=== PATIENT | female | born 1935 | race Caucasian/White ===

== ENCOUNTER → 2017-12-17 14:51 | Outpatient (CLI) | payer MEDICARE, SELFPAY ==
[2017-12-17 17:48] LABS: M R Staph aureus DNA By PCR Negative (Negative); Probe Check PASS; Staph aureus DNA By PCR NEGATIVE (Negative)
== END ==
PROVIDERS: Family Provider Family Medicine; PCP Family Medicine; Visit Provider Specialist
DX: S80.11XD Contusion of right lower leg, subsequent encounter (principal)
CPT/HCPCS: 87070; 87075; 87077; 87186; 87205; 87640

== ENCOUNTER 2017-12-21 12:55 | Outpatient (RCR) | payer MEDICARE, SELFPAY ==
[2017-12-21 13:44] VITALS: BP 137/103; PULSE 90; RESP 16; TEMP 36.4; BMI 24.9
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
== END 2017-12-27 23:59 ==
LOC: WC 12:55
PROVIDERS: Family Provider Family Medicine; PCP Family Medicine; Visit Provider Surgery
DX: T81.4XXA Infection following a procedure, initial encounter (principal); L08.9 Local infection of the skin and subcutaneous tissue, unspecified; S80.11XS Contusion of right lower leg, sequela; V89.2XXS Person injured in unspecified motor-vehicle accident, traffic, sequela; I48.91 Unspecified atrial fibrillation; Z86.711 Personal history of pulmonary embolism; I10 Essential (primary) hypertension; Z79.01 Long term (current) use of anticoagulants; Z85.828 Personal history of other malignant neoplasm of skin
CPT/HCPCS: 11042; 99212; G0463

== ENCOUNTER 2017-12-28 09:08 | Outpatient (RCR) | payer MEDICARE, SELFPAY ==
[2017-12-28 01:49] VITALS: BP 137/103; PULSE 90; RESP 16; TEMP 36.4
[2017-12-28 14:30] VITALS: BP 120/82; PULSE 90; RESP 18; TEMP 35.9
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
--- NOTE | 2018-01-01 10:32 | WC ---
Patient called in to cancel her F/U appointment for Thursday with Dr. Sauer. She states wound is healed, not drainage. Will be discharged from the Wound Center.
--- NOTE | 2018-01-03 12:12 | LEAS_ITS ---
Arterial Study - Arterial Study Arterial Study: This is an 82-year-old female with suspected peripheral arterial occlusive disease. She also has a wound on her lower extremity. She is brought to the noninvasive vascular laboratory at this time for the purpose of bilateral noninvasive lower extremity arterial assessment. Doppler signal assessment was used to evaluate the pulses at ankle level bilaterally. On the right,, the posterior tibial pulse was triphasic. The right dorsalis pedis pulse was biphasic. The left posterior tibial and dorsalis pedis pulses were triphasic. Segmental limb pressures were obtained bilaterally. The right ankle pressure, as determined by posterior tibial pulse, was measured at 120 mmHg. The right ankle pressure, as determined by dorsalis pedis pulse, was measured at 129 mmHg. The right digital pressure was measured at 94 mmHg. The left ankle pressure, as determined by posterior tibial pulse, was measured at 124 mmHg. The left ankle pressure, as determined by dorsalis pedis pulse, was measured at 134 mmHg. The left digital pressure was measured at 59 mmHg. Pulse?volume recordings were obtained bilaterally and segmentally. Waveform amplitudes appeared to be satisfactory at all levels bilaterally, including low thigh, calf, ankle, and digital levels. Resting ankle?brachial indices were calculated bilaterally. The resting right ankle?brachial index was calculated to be 1.13. The resting left ankle?brachial index was calculated to be 1.18. Digital?brachial indices were calculated bilaterally. The right digital- brachial index was calculated to be 0.82. The left digital-brachial index was calculated to be 0.52. Impression: Based upon the findings of this resting noninvasive lower extremity arterial study, arterial perfusion to ankle level appears to be bilaterally normal. Triphasic and biphasic waveforms were noted at ankle level on the right. Triphasic waveforms were noted at ankle level on the left. Resting ankle?brachial indices are bilaterally normal, suggesting normal arterial flow at ankle level bilaterally. The right digital-brachial index is normal, suggesting normal flow at digital level in the right lower extremity. The left digital-brachial index is moderately diminished, suggesting the presence of moderate, distal, small?vessel arterial occlusive disease in the left lower extremity. Clinical correlation is advised.
== END 2018-01-27 23:59 ==
LOC: WC 09:08
PROVIDERS: Family Provider Family Medicine; PCP Family Medicine; Referring Provider Surgery; Visit Provider Surgery
DX: S80.11XA Contusion of right lower leg, initial encounter (principal); V49.9XXA Car occupant (driver) (passenger) injured in unspecified traffic accident, initial encounter; I10 Essential (primary) hypertension; Z79.01 Long term (current) use of anticoagulants; I48.2 Chronic atrial fibrillation; Z85.828 Personal history of other malignant neoplasm of skin; I27.82 Chronic pulmonary embolism; I73.9 Peripheral vascular disease, unspecified
CPT/HCPCS: 11042; 93923

== ENCOUNTER 2019-04-09 22:51 | Inpatient (IN) | payer MEDICARE, SELFPAY ==
[2019-04-09 22:53] VITALS: BP 79/57; PULSE 70; RESP 19; TEMP 36.7; O2SAT 96; BMI 25.6
--- NOTE | 2019-04-09 23:05 | EKG12_ITS ---
Test Reason : REPEAT Blood Pressure : / mmHG Vent. Rate : 072 BPM Atrial Rate : 278 BPM P-R Int : 000 ms QRS Dur : 096 ms QT Int : 394 ms P-R-T Axes : 000 057 128 degrees QTc Int : 431 ms Atrial flutter with variable A-V block Incomplete right bundle branch block ST elevation consider inferior injury or acute infarct ACUTE TX / STEMI Consider right ventricular involvement in acute inferior infarct Abnormal ECG Confirmed by GAVINO HESS, JARAD ([id number]), department editor ROBY DUNN ([id number]) on 04/11/2019 10:07:29 AM Referred By: Yahir Darby Confirmed By:JARAD MANCIA MD
--- NOTE | 2019-04-09 23:06 | RAD_ITS ---
HISTORY: CHEST PAIN THAT RADIATES TO BACK EXAMINATION/TECHNIQUE: XR Chest 1 View: Portable COMPARISON: None FINDINGS: Cardiac telemetry leads in place. Mild cardiomegaly. No vascular congestion, pleural effusion, or pulmonary infiltration. Atherosclerotic, ectatic thoracic aorta. No pneumothorax. RAD/Chest 1 View (Portable) IMPRESSION: 1. No acute cardiopulmonary disease. 2. Mild cardiomegaly. 3. Atherosclerotic, ectatic thoracic aorta. at 0030 Reported and signed by: Daljit Gonzalez MD Electronically Signed: Daljit Gonzalez, at 0:29 EST Tel , Service support ,
[2019-04-09] MEDS: 0.9% Normal Saline 1,000 ML 999 ML IV (23:08)
[2019-04-09 23:10] VITALS: BP 81/50; PULSE 60; RESP 19; O2SAT 95
--- NOTE | 2019-04-09 23:26 | EKG12_ITS ---
Test Reason : CP Blood Pressure : / mmHG Vent. Rate : 069 BPM Atrial Rate : 293 BPM P-R Int : 000 ms QRS Dur : 098 ms QT Int : 402 ms P-R-T Axes : 000 063 124 degrees QTc Int : 430 ms Atrial flutter with variable A-V block Nonspecific ST and T wave abnormality Abnormal ECG Confirmed by GAVINO HESS, JARAD ([id number]), slot editor ROBY DUNN ([id number]) on 04/11/2019 10:07:49 AM Referred By: Yahir Darby Confirmed By:JARAD MANCIA MD
[2019-04-09 23:27] VITALS: BP 84/55; PULSE 62; RESP 18; O2SAT 96
[2019-04-09 23:34] LABS: Absolute Lymphocyte Count 1.01 X10^3/uL (0.83-4.51); Absolute Neutrophil Count 3.9 X10^3/uL (2.0-7.7); Basophil# 0.03 X10^3/uL; Basophil% 0.5 % (0-1); Eosinophil# 0.11 X10^3/uL; Eosinophils% 1.9 % (0-5); Hematocrit 35.8 % (37-47); Hemoglobin 11.9 g/dL (12.0-15.0); Lymphocyte # 1.01 X10^3/ul (4.0); Lymphocyte % 17.7 % (19-41); Mean Corp Hgb Conc 33.2 g/dL (32-36); Mean Corpuscular Hgb 30.9 pg (27.0-32.0); Mean Platelet Vol. 10.3 fl (6.2-12.0); Monocyte# 0.59 X10^3/uL; Monocyte% 10.3 % (0-10); NRBC Flagged by Analyzer 0 % (0-5); Neutrophil # 3.94 X10^3/uL (2.7-7.7); Neutrophil % 69.1 % (47-70); Platelet Count 147 K/mm3 (150-450); RBC Distribution Width CV 14.6 % (11.6-14.6); RBC Distribution Width SD 49.7 fl (35.1-43.9); Red Blood Count 3.85 M/mm3 (4.2-5.4); White Blood Count 5.7 K/mm3 (4.4-11.0)
[2019-04-09 23:37] LABS: Anion Gap 5 (5-15); BUN 25 mg/dL (7-18); BUN/Creat Ratio 23.6 RATIO (10-20); Calcium,Total 8.6 mg/dL (8.5-10.1); Chloride 105 mmol/L (98-107); Creatinine, Serum 1.06 mg/dL (0.55-1.02); EST Glomerular Filtration Rate 53 mL/min (>60); Est Glom Filt Rate - Afr Amer 64 mL/min (>60); Estimated Creatinine Clearance 35.94 ml/min; Glucose 121 mg/dL (74-106); Potassium 4.7 mmol/L (3.5-5.1); Sodium Level 140 mmol/L (136-145)
[2019-04-09] MEDS: TICAGRELOR 90 MG TABLET 180 MG PO (23:38)
[2019-04-09] MEDS: Heparin Injection (Vial) 5,000 UNIT/ML VIAL 4000 UNIT IV (23:38)
--- NOTE | 2019-04-09 23:39 | ED.DCSUM_ITS ---
- ER Visit Summary Date of Service: 04/09/19 Chief Complaint: Chest pain History of Present Illness: The patient is a 83 F history of chronic A. fib a flutter, hypertension and prior PE postoperatively. Patient is chronically on Xarelto. States she has been taking it as prescribed. Tonight while she was getting into bed about an hour prior to arrival she started having midsternal chest pressure. Radiating to her back. Denies any nausea or shortness of breath. No radiation to her jaw or left arm. She states she is always in A. fib or flutter but she normally does not have pain with it. She denies any diaphoresis. No recent exertional dyspnea. She states that she had a heart catheterization about a year ago in [facility] and she thought that that was negative and she did not need any stents nor does she have any stents. Physical Examination: Elderly female complaining of chest discomfort initial blood pressure 79/57. Pulse ox 96% on room air no hypoxia. HEENT exam unremarkable. Neck nontender. Lungs clear to auscultation bilaterally. Heart atrial flutter on the monitor rate about 70 I do not appreciate any murmur. Chest wall nontender. Abdomen soft nontender. Normal bowel sounds no peritoneal signs. Patient is moving all 4 extremities. They are neurovascularly intact. She does have 1+ pitting edema both lower extremities equal symmetrical. Calves are nontender. Neurologically she is awake and alert with no focal motor deficits. Test Results: Chest x-ray portable film shows normal cardiac silhouette mediastinum and aortic knob. Her initial EKG shortly after presentation shows atrial flutter with variable AV block. There is atypical ST elevation in lead III with T wave inversion in V4 and 1. Given the initial EKG are hypotensive and age we repeated the EKG at [address] elevation in lead III and is concave. Subtle and aVF. And again T wave inversion in V4 and 5 with slight depression and also in lead I. Given that her hypotension and age I discussed the EKG with the carrier blower on-call Dr. Jhon Darby. And we are going to call a STEMI team on the patient she will be taken to cardiac catheterization lab. CBC white count of 5. Hemoglobin 11.9. Chemistries unremarkable normal crea tinine gap. Troponin normal. [facility] but that was from [facility]. And there was an obvious difference in inferolateral leads. Emergency Department Course and Treatment: 83-year-old with chest pain, hypotension and chronic A. fib flutter on Xarelto. Abnormal EKG with concerns for an inferior VA. Treated with a liter normal saline. P.o. aspirin by squad. Heparin bolus 4000 IV. Brilinta p.o. And she will be taken emergently to the cardiac catheterization lab. She was also given a 4000 unit bolus of IV heparin Treatment Plan: Hospitalist and dental patient coordinator are both aware and will be involved in the patient's care. Disposition: Directly to the cardiac catheterization labs and admission Impression: Chest Pain R/o Acute inferior VA Chronic atrial flutter Acute hypotension Anticoagulated on Xarelto This note was generated with [employer] dictation software. It may contain incorrect words, spelling, and punctuation that were not noted in review of the chart prior to signing ED Disposition - Plan for ED Patient: Disposition: Acute Care [facility]
--- NOTE | 2019-04-09 23:46 | HP.PCM_ITS ---
Problem List (1) Chest pain Status: Acute Qualifiers: Chest pain type: unspecified Qualified Code(s): R07.9 - Chest pain, unspecified (2) Pulmonary embolism Status: Chronic Qualifiers: Chronicity: chronic Acute cor pulmonale presence: unspecified (3) Atrial fibrillation Status: Chronic (4) Hypertension Status: Chronic (5) Parkinsons disease Status: Chronic History of Present Illness Date of Admission: 04/10/19 Chief Complaint: Chest pain - 1 day The patient is a 83 year old F with past medical history of Parkinson's disease, hypertension, chronic atrial fibrillation, history of PE on Xarelto who comes in with complaints of sudden onset of substernal chest pain that radiates to her back and her left jaw. Patient complained also of feeling lightheaded, no palpitation or syncope noted. EMS were called and found patient sitting in the couch. ST segment elevation were noted in lead III. In the ED on arrival, showed temperature of 98.1F, heart rate 70, blood pressure 79/57, respiratory rate 19, SPO2 was 96% on room air. WBC 6.6, hemoglobin 11.2, platelet count of 144, INR 2.7, BMP was unremarkable except for BUN of 25, creatinine 1.06. Troponin was 0.015. EKG showed some subtle ST segment elevation in lead III, aVF and T wave inversions in the lateral leads. STEMI was called. Patient had emergent cardiac catheterization. Findings showed nonobstructive coronary artery disease. Past Medical History Past Medical History (Chronic Problems): Chronic Problems (Last Updated 12/21/17 @ 14:03 by Brisa Escobedo) Traumatic wound (Chronic) Wound, surgical, nonhealing (Chronic) Pulmonary embolism (Chronic) Atrial fibrillation (Chronic) Anticoagulated (Chronic) Hypertension (Chronic) History of skin cancer (Chronic) Parkinsons disease (Chronic) Medical History: Medical History (Last Updated 12/21/17 @ 14:03 by Brisa Escobedo) Atrial fibrillation I48.91 Allergies ampicillin Allergy (Verified 12/21/17 14:01) Unknown Home Medications: Ambulatory Orders Medication Instructions Recorded Rivaroxaban [Xarelto] 20 mg PO DAILY 12/21/17 Carbidopa/Levodopa 50/200 [Sinemet 1 tab PO TID 04/09/19 CR 50/200] Metoprolol Tartrate [Lopressor 1 tab PO BID 04/09/19 (beta jeri)] Propafenone HCl 1 tab PO TID 04/09/19 Surgical History: cholecystectomy, - - The patient has previously undergone cholecystectomy. She is a Ab0. Psychiatric History: No pertinent psych hx CHEMISTRY INTERN History: No pertinent CHEMISTRY INTERN history Lives: Alone Smoking Status: Never smoker Tobacco Use: Non-smoker Alcohol: None Drugs: None - *Family History Paternal History Items: Heart Disease, - - Patient's father at age of 67 with a history of heart disease. Patient's mother at age of 88 with a history of heart disease. Maternal History Items: Heart Disease Review of Systems Constitutional: Denies: Anorexia, Chills, Fever, Night Sweats, Malaise, Weakness, Weight Change Eyes: Denies: Blurred vision, Cataracts, Conjunctivae Inflammation, Pain, Redness HEENT: Denies: Difficulty Hearing, Difficulty Swallowing, Head Aches, Hearing Changes, Sinus Congestion, Sinus Drainage Cardiovascular: Reports: Chest Pain, Chest Pressure, Chest Tightness, Light Headedness. Denies: Claudication, Orthopnea, Palpitations, Paroxysmal Noc. Dyspnea Respiratory: Denies: Cough, Hemoptysis, Shortness of breath at rest, Shortness of breath upon exertion, Sputum production Gastrointestinal: Denies: Abdominal Pain, Hematemesis, Nausea, Vomiting Genitourinary: Denies: Dysuria, Frequency Gynecological: Denies: Breast symptoms, Excessively long or heavy periods Musculoskeletal: Denies: Joint Pain, Joint stiffness, Joint swelling, Joint Tenderness Skin: Denies: Rash, Wounds Neurological: Denies: Numbness, Tingling, Focal weakness Psychiatric: Denies: Anxiety, Depression, Homicidal Ideations, Suicidal Ideat ions Hematologic/ Lymphatic: Denies: Easy Bruising, Easy Bleeding VTE Information - Inpt Only VTE Present on Admission: No VTE Pharm Prophylaxis ordered?: Yes Patient Problems: Active and Suspected Problems (Last Updated 12/21/17 @ 14:03 by Brisa Escobedo) Chest pain (Acute) - Physical Exam Vitals/I&O's: Vital Signs Temp Pulse Resp BP Pulse Ox 98.1 F 62 18 84/55 L 96 04/09/19 22:53 04/09/19 23:27 04/09/19 23:27 04/09/19 23:27 04/09/19 23:27 Oxygen Flow Rate (L/min) 2 Oxygen Delivery Method Nasal Cannula Weight: 67.8 kg Body Mass Index (BMI) 25.6 General: Alert, Oriented x3, Cooperative, No apparent distress, - - Looks frail HEENT: Atraumatic, PERRLA, EOMI, Normocephalic Oral: Moist Mucosa Neck: Supple Lungs: Clear to auscultation, Normal air movement Cardiovascular: Regular rate, Regular Rhythm, Normal S1, Normal S2, No murmurs Abdomen: Bowel Sounds Present, Soft, Non Tender, Non-Distended, No Hepato- splenomegaly Extremities: No edema Skin: No rashes, No breakdown Musculoskeletal: No Tenderness to Palpation of Joints or Extremities Lymphatic: No Cervical, Supraclavicular, or Inguinal Adenopathy Neurological: Cranial nerves II-XII grossly intact, Neuro grossly intact Psych/Mental Status: Normal Affect, Appropriate Laboratory Results 04/09/19 22:58: PT Pending, INR Pending, APTT Pending 04/09/19 23:00: WBC 5.7, RBC 3.85 L, Hgb 11.9 L, Hct 35.8 L, MCV 93.0, MCH 30.9, MCHC 33.2, RDW Std Deviation 49.7 H, RDW Coeff of Wanda 14.6, Plt Count 147 L, MPV 10.3, Immature Gran % (Auto) 0.500, Neut % (Auto) 69.1, Lymph % (Auto) 17.7 L, [place] % (Auto) 10.3 H, Eos % (Auto) 1.9, Baso % (Auto) 0.5, Absolute Neuts (auto) 3.9, Absolute Lymphs (auto) 1.01, Nucleated RBC % 0 04/09/19 23:00: Sodium 140, Potassium 4.7, Chloride 105, Carbon Dioxide 30.0, Anion Gap 5, BUN 25 H, Creatinine 1.06 H, Estim Creat Clear Calc 35.94, Est GFR (MDRD) Af Amer 64, Est GFR (MDRD) Non-Af 53 L, BUN/Creatinine Ratio 23.6 H, Glucose 121 H, Calcium 8.6, Troponin I < 0.015 Current Medications Sodium Chloride () 1,000 mls @ 999 mls/hr IV .Q1H1M ONE Stop: 04/10/19 00:06 Last Admin: 04/09/19 23:08 Dose: 999 mls/hr Documented by: Assessment/Plan All Active Problems (Last Updated 12/21/17 @ 14:03 by Brisa Escobedo) Chest pain (Acute) 83 year old F with past medical history of Parkinson's disease, hypertension, chronic atrial fibrillation, history of PE on Xarelto who comes in with complaints of sudden onset of substernal chest pain that radiates to her back and her left jaw. 1. Chest pain, STEMI, s/p emergent cardiac catheterization. Findings showed non-obstructive coronaries Continue on her home beta-jeri 2. Hypertension, controlled, continue on metoprolol BP initially was low, elevated after cardiac cath, will continue to monitor 3. Parkinson's disease, on Sinemet 4. History of PE 2 years ago, on Xarelto 5. DVT PPx-Xarelto on hold as patient received heparin today. Code Visit Inpatient E&M: 50105 Init Hosp L3
[2019-04-09 23:49] LABS: International Normalized Ratio 2.7; Partial Thromboplast Time 46.2 Seconds (24.1-36.2); Prothrombin Time (Protime)PT. 28.6 SECONDS (11.7-14.9)
[2019-04-10] VITALS (30 sets, daily range): BP systolic 86–166; BP diastolic 52–105; PULSE 69–103; RESP 12–23; TEMP 36.1–36.8; O2SAT 94–98; BMI 24.6; BMI 24.7
[2019-04-10 01:26] LABS: ACT Activated Clotting Time 208 sec (74-137)
[2019-04-10 01:26] LABS: ACT Activated Clotting Time 197 sec (74-137)
--- NOTE | 2019-04-10 01:28 | CL.D_ITS ---
Patient Name: TENZIN AKERS Study Date: 04/10/2019 Performing: Yahir Darby MD Ht: 64.17 inches 163 cm : 1935 Wt: 149.91 lbs 68 kg Age: 83 Gender: female BSA: 1.73 PROCEDURE(S) PERFORMED [id number]/COR/LV [id number] RENAL ANGIO WITH HEART CATH CLINICAL PROFILE AND INDICATIONS Patient presents with STEMI for emergent cardiac cath. Indications: ACS <= 24 hrs, Suspected CAD, Cardiac Arrythmia Heart Failure: None Stress/Imaging Stress/Image Study Performed: No Angina Classification Anginal Classification w/in 2 Weeks: No symptoms CAD Presentations: STEMI. Symptom onset Date/Time: 04/08/2019 22:30:00 Time Estimated Comorbidities/Risk Factors: Hypertension Dyslipidemia CONCLUSIONS Non obstructive coronary arteries Perserved Left Ventricular systolic function with normal EDP False positive EKG for STEMI. No acutely occluded lesion detected. RECOMMENDATIONS Management as per referring Editor Producer Partially successful Mynx Control to RFA. Femostop at 40 mm Hg x 6 hours, then off. Hold Xeralto for at least 1 week to allow groin to heal. Evaluate for non-cardiac chest pain. DESCRIPTION OF PROCEDURE The patient arrived to the procedure lab. The risks and benefits of the procedure as well as a full d escription of our services here and current unavailability of surgical backup were fully explained to the patient and/or their significant other prior to the catheterization. The Timeout was completed, verifying the correct patient and procedure. The patient's procedural site was prepped and draped in the usual fashion. Local anesthetic was given subcutaneously to right groin region with Lidocaine 2%. Using a modified Seldinger technique, arterial access was obtained via the right femoral artery, a 6 Fr sheath was inserted. Right Coronary Artery selective angiography was then performed in multiple v iews using a 4 Fr. 3DRC catheter. Left Coronary Artery selective angiography was performed in multipl e views using a 5 Fr. JL3.5 catheter. Left Ventriculography was performed in VILLA projection using a 6 Fr. 125cm pigtail. LV to AO pullback pressures were then recorded.Contrast was injected through the sheath and the Right Iliac and Femoral artery were assessed for possible closure device.T he arterial sheath was exchanged to a standard 6fr 11cm. The arterial sheath was pulled and a Mynx cl osure device was deployed for hemostasis CORONARY ANGIOGRAPHY DOMINANCE: Right Dominant LEFT HEART ASSESSMENT Left Ventricular Ejection Fraction: by LV Gram 75 % Normal LV wall motion Normal Left Ventricular systolic function LEFT MAIN: Angiographically normal LEFT ANTERIOR DESCENDING ARTERY: MID LAD: Mild luminal irregularities less than 30% CIRCUMFLEX ARTERY: MID CIRC: Mild luminal irregularities less than 30% RIGHT CORONARY ARTERY: MID RCA: Mild luminal irregularities less than 30% RT PDA: Proximal - Angiographically normal PERIPHERAL FINDINGS: Abdominal Aorta: Tortuous COMPLICATIONS No Complications PROCEDURE MEDICATIONS Fentanyl 25 mcg IV Oxygen: 2 L/min via nasal cannula Nitro Tab 0.4 mg PO 04/10/2019 00:56:50 Nitro glycerin 25mg / 250ml D5W @ 10 mcg/min IV started 04/10/2019 00:58:22 IV Bolus: .9 NaCl 250 ml total 04/10/2019 01:00:31 SUMMARY OF HEMODYNAMIC DATA Time AIR REST ECG 00:06:52 AO 136/109 (117) SA 00:23:26 LV 152/-6, 9 00:45:26 LV 144/-3, 13 00:45:32 LVp 146/-1, 13 00:45:37 AOp 145/90 (113) 00:45:42 AO 140/86 (108) 00:45:58 Signed By Yahir Darby MD On 04/10/2019 01:27:59 Yahir Darby MD
[2019-04-10] MEDS: Nitroglycerin Infusion 250 ML 6 MG CONT INF (01:40)
[2019-04-10] MEDS: 0.9% Normal Saline 1,000 ML 150 ML IV (01:40)
[2019-04-10] MEDS: 0.9% Saline Lock 10 ML Syringe IV ×2 (02:26→06:05)
[2019-04-10] MEDS: Morphine 2 MG/ML Syringe IV ×2 (02:26→06:04)
[2019-04-10] MEDS: oxyCODONE 5 MG Tablet PO (03:59)
[2019-04-10] MEDS: CARBIDOPA/LEVODOPA CR 50/200 Tablet PO ×3 (05:01→21:04)
[2019-04-10] MEDS: Propafenone 150 MG Tablet PO ×3 (05:02→21:04)
[2019-04-10 05:10] LABS: Absolute Lymphocyte Count 0.52 X10^3/uL (0.83-4.51); Absolute Neutrophil Count 5.5 X10^3/uL (2.0-7.7); Basophil# 0.02 X10^3/uL; Basophil% 0.3 % (0-1); Eosinophil# 0.01 X10^3/uL; Eosinophils% 0.2 % (0-5); Hematocrit 34.6 % (37-47); Hemoglobin 11.3 g/dL (12.0-15.0); Lymphocyte # 0.52 X10^3/ul (4.0); Lymphocyte % 7.9 % (19-41); Mean Corp Hgb Conc 32.7 g/dL (32-36); Mean Corpuscular Hgb 30.3 pg (27.0-32.0); Mean Corpuscular Volume 92.8 fL (81-99); Mean Platelet Vol. 10.4 fl (6.2-12.0); Monocyte# 0.52 X10^3/uL; Monocyte% 7.9 % (0-10); NRBC Flagged by Analyzer 0 % (0-5); Neutrophil # 5.49 X10^3/uL (2.7-7.7); Neutrophil % 83.5 % (47-70); POSITIVE DIFFERENTIAL YES; Platelet Count 144 K/mm3 (150-450); RBC Distribution Width CV 14.7 % (11.6-14.6); RBC Distribution Width SD 49.8 fl (35.1-43.9); Red Blood Count 3.73 M/mm3 (4.2-5.4); White Blood Count 6.6 K/mm3 (4.4-11.0)
[2019-04-10 05:13] LABS: Differential Indicated SCAN CRITERIA MET
[2019-04-10 05:41] LABS: AST(SGOT) 111 U/L (15-37); Alanine Aminotransfer ALT/SGPT 69 U/L (13-56); Albumin, Serum 2.7 g/dL (3.2-5.0); Alkaline Phosphatase 61 U/L (45-117); Anion Gap 5 (5-15); BUN 22 mg/dL (7-18); BUN/Creat Ratio 29.9 RATIO (10-20); Calcium,Total 7.7 mg/dL (8.5-10.1); Chloride 109 mmol/L (98-107); Creatinine, Serum 0.74 mg/dL (0.55-1.02); EST Glomerular Filtration Rate 81 mL/min (>60); Est Glom Filt Rate - Afr Amer 98 mL/min (>60); Globulin 2.8 g/dL (2.2-4.2); Glucose 128 mg/dL (74-106); Potassium 5.1 mmol/L (3.5-5.1); Protein, Total 5.5 g/dL (6.4-8.2); Sodium Level 140 mmol/L (136-145)
[2019-04-10 05:51] LABS: Crenated RBC 2+; Differential Comment SCANNED
--- NOTE | 2019-04-10 05:55 | EKG12_ITS ---
Test Reason : AM EKG Blood Pressure : / mmHG Vent. Rate : 096 BPM Atrial Rate : 308 BPM P-R Int : 000 ms QRS Dur : 100 ms QT Int : 378 ms P-R-T Axes : 000 065 144 degrees QTc Int : 477 ms Atrial flutter with variable A-V block Anterior infarct , age undetermined ST & T wave abnormality, consider lateral ischemia Abnormal ECG When compared with ECG of 09-APR-2019 23:14, MANUAL COMPARISON REQUIRED, DATA IS UNCONFIRMED Confirmed by BREE HESS, ARIC ([id number]), publications editor SILVA CUEVAS ([id number]) on 04/12/2019 10:32:24 AM Referred By: Yahir Darby Confirmed By:ARIC GIRON MD
[2019-04-10] MEDS: Metoprolol Tartrate 25 MG Tablet PO ×2 (06:46→12:38)
[2019-04-10] MEDS: Ibuprofen 600 MG Tablet PO (06:55)
--- NOTE | 2019-04-10 10:02 | PCM.PN.HOSP ---
Patient Problems: Active and Suspected Problems (Last Updated 12/21/17 @ 14:03 by Brisa Escobedo) Chest pain (Acute) Subjective: Patient seen and examined. She was admitted with a complaint of chest pain which radiated to her back in her left shoulder. On admission in the ED, troponin was 0.[address] lateral ST elevation in leads III, aVF and T wave inversions in the lateral leads. STEMI was therefore called and she had an emergent cardiac Catheterization which showed nonobstructive coronary artery disease. Patient seen and examined. She had no complaints this morning. Patient has a very flat affect likely due to Parkinson's disease. She had no complaints. Review of films otherwise negative. Labs and vitals reviewed. She has remained hemodynamically stable. Vitals/I&O's: Vital Signs Temp Pulse Resp BP Pulse Ox 98.3 F 98 18 128/101 H 97 04/10/19 08:00 04/10/19 09:00 04/10/19 09:00 04/10/19 09:00 04/10/19 09:00 Oxygen Flow Rate (L/min) 2 Oxygen Delivery Method Room Air Weight: 143 lb 11.862 oz Body Mass Index (BMI) 24.6 Intake and Output for Last 24 Hours 04/08/19 04/09/19 04/10/19 23:59 23:59 23:59 Intake Total 2252.75 / 2252.75 Output Total 100 / 100 Balance 2152.75 / 2152.75 General: Alert, Oriented x3, Cooperative, No apparent distress HEENT: Atraumatic, PERRLA, EOMI, Normocephalic Oral: Moist Mucosa Neck: Supple, No JVD, Negative Carotid Bruits Lungs: Clear to auscultation, Normal air movement, No rhonchi, No wheeze, No rales Cardiovascular: Normal S1, Normal S2, No murmurs, Irregular Rate - Afib Abdomen: Bowel Sounds Present, Soft, Non Tender Extremities: No clubbing, No cyanosis, No edema, Capillary Refill Less than 3 Seconds Skin: No rashes, No breakdown Musculoskeletal: No Tenderness to Palpation of Joints or Extremities Lymphatic: No Cervical, Supraclavicular, or Inguinal Adenopathy Neurological: Cranial nerves II-XII grossly intact Psych/Mental Status: Flat Affect, Alert and oriented to time, place, person, mood and affect Laboratory Results 04/09/19 22:58: PT 28.6 H, INR 2.7, APTT 46.2 H 04/09/19 23:00: WBC 5.7, RBC 3.85 L, Hgb 11.9 L, Hct 35.8 L, MCV 93.0, MCH 30.9, MCHC 33.2, RDW Std Deviation 49.7 H, RDW Coeff of Wanda 14.6, Plt Count 147 L, MPV 10.3, Immature Gran % (Auto) 0.500, Neut % (Auto) 69.1, Lymph % (Auto) 17.7 L, Grand % (Auto) 10.3 H, Eos % (Auto) 1.9, Baso % (Auto) 0.5, Absolute Neuts (auto) 3.9, Absolute Lymphs (auto) 1.01, Nucleated RBC % 0 04/09/19 23:00: Sodium 140, Potassium 4.7, Chloride 105, Carbon Dioxide 30.0, Anion Gap 5, BUN 25 H, Creatinine 1.06 H, Estim Creat Clear Calc 35.94, Est GFR (MDRD) Af Amer 64, Est GFR (MDRD) Non-Af 53 L, BUN/Creatinine Ratio 23.6 H, Glucose 121 H, Calcium 8.6, Troponin I < 0.015 04/10/19 00:15: Activated Clotting Time 208 H 04/10/19 00:50: Activated Clotting Time 197 H 04/10/19 02:25: Troponin I 0.074 H 04/10/19 04:57: WBC 6.6, RBC 3.73 L, Hgb 11.3 L, Hct 34.6 L, MCV 92.8, MCH 30.3, MCHC 32.7, RDW Std Deviation 49.8 H, RDW Coeff of Wanda 14.7 H, Plt Count 144 L, MPV 10.4, Immature Gran % (Auto) 0.200, Neut % (Auto) 83.5 H, Lymph % (Auto) 7.9 L, Grand % (Auto) 7.9, Eos % (Auto) 0.2, Baso % (Auto) 0.3, Absolute Neuts (auto) 5.5, Absolute Lymphs (auto) 0.52 L, Nucleated RBC % 0, Differential Comment SCANNED, Crenated Cell 2+ 01/12/20 04:57: Sodium 140, Potassium 5.1, Chloride 109 H, Carbon Dioxide 26.0, Anion Gap 5, BUN 22 H, Creatinine 0.74, Estim Creat Clear Calc 38.10, Est GFR (MDRD) Af Amer 98, Est GFR (MDRD) Non-Af 81, BUN/Creatinine Ratio 29.9 H, Glucose 128 H, Calcium 7.7 L, Total Bilirubin 1.20 H, AST 111 H, ALT 69 H, Alkaline Phosphatase 61, Troponin I 0.087 H, Total Protein 5.5 L, Albumin 2.7 L, Globulin 2.8, Albumin/Globulin Ratio 1.0 Diagnostic Data Chest X-Ray 04/09/19 23:06 IMPRESSION: 1. No acute cardiopulmonary disease. 2. Mild cardiomegaly. 3. Atherosclerotic, ectatic thoracic aorta. at 0030 Reported and signed by: Daljit Gonzalez MD Electronically Signed: Daljit Gonzalez, at 0:29 EST Tel , Service support , Current Medications Acetaminophen (Tylenol) 650 mg PO Q6H PRN PRN PRN Reason: Pain Score 1-3/Temp > 100.7 F Al Hydroxide/Mg Hydroxide (Mylanta Ii) 30 ml PO Q6H PRN PRN PRN Reason: Gastric Burning Carbidopa/Levodopa (Sinemet Cr) 1 tablet PO TID [facility] Last Admin: 04/10/19 05:01 Dose: 1 tablet Documented by: Heparin Sodium (Beef Lung) (Heparin 500 Unit/5 Ml (100/Ml)) 500 unit IV UD PRN PRN Reason: HEPARIN FLUSH Nitroglycerin/Dextrose () 250 mls @ 6 mls/hr CONT INF .[id number] [facility]; Protocol Last Titration: 04/10/19 03:15 Dose: 0 mcg/min, 0 mls/hr Documented by: Sodium Chloride () 1,000 mls @ 150 mls/hr IV .[id number] [facility] Last Infusion: 04/10/19 08:20 Dose: Infused Documented by: Ibuprofen (Motrin) 600 mg PO Q8H PRN PRN PRN Reason: Pain Score 4-10/10 Last Admin: 04/10/19 06:55 Dose: 600 mg Documented by: Labetalol HCl (Trandate) 5 mg IV X1 PRN PRN Reason: SBP > 160 prior to sheath pull Metoprolol Tartrate (Lopressor (Beta Abebe)) 25 mg PO BID [facility] Last Admin: 04/10/19 06:46 Dose: 25 mg Documented by: Morphine Sulfate () 2 mg IV Q3H PRN PRN PRN Reason: Pain Score 6-10/10 Last Admin: 04/10/19 06:04 Dose: 2 mg Documented by: Ondansetron HCl (Zofran) 4 mg IV Q8H PRN PRN PRN Reason: NAUSEA/VOMITING Oxycodone HCl (Oxyir) 5 mg PO Q4H PRN PRN PRN Reason: Pain Score 4-5/10 Last Admin: 04/10/19 03:59 Dose: 5 mg Documented by: Propafenone HCl (Rythmol) 150 mg PO Q8 [facility] Last Admin: 04/10/19 05:02 Dose: 150 mg Documented by: Psyllium Hydrophilic Mucilloid (Metamucil) 1 packet PO DAILY PRN PRN PRN Reason: Constipation Senna/Docusate Sodium (Senokot-S, Qian-Colace) 2 tablet PO BID PRN PRN PRN Reason: Constipation Sodium Chloride () 10 - 40 ml IV UD PRN PRN Reason: SALINE FLUSH Last Admin: 04/10/19 06:05 Dose: 40 ml Documented by: STROKE Vital Signs/Narrative: Vital Signs Temp Pulse Resp BP Pulse Ox 04/10/19 09:00 98 18 128/101 H 97 04/10/19 08:00 98.3 F 103 H 15 127/104 H 96 04/10/19 07:00 99 18 166/100 H 97 04/10/19 06:46 92 156/100 H Medical Necessity - Tobacco Use Smoking Status: Never smoker Tobacco Use: Non-smoker Assessment/Plan All Active Problems (Last Updated 12/21/17 @ 14:03 by Brisa Escobedo) Chest pain (Acute) 1. STEMI presented with chest pain and had subtle ST elevation in lead III and aVF as well as T wave inversions in lateral leads. STEMI alert was therefore called. Cardiac cath showed nonobstructive coronary artery disease with preserved left ventricular systolic function and false positive EKG for STEMI. On metoprolol. Check lipid panel. Currently not on statin. will give aspirin 81mg daily. 2. Hypertension: On metoprolol. 3. Parkinson's disease: Patient has very flat affect currently. On Sinemet. 4. History of PE: Had PE 2 years ago. Xarelto on hold currently. Per cardiology, to hold Xarelto for 1 week to allow for right groin to heal. 5. Atrial fibrillation: Currently rate controlled. On metoprolol. Xarelto currently on hold. DVT Prophylaxis: SCDs Code Visit Inpatient E&M: 71402 Subs Hosp L2
[2019-04-10] MEDS: Acetaminophen 325 MG Tablet 650 MG PO (10:08)
[2019-04-10 10:34] LABS: Cholesterol 138 mg/dL (200); High Density Lipoprotein 60 mg/dL; Triglycerides 73 mg/dL; Very Low Density Lipoprotein 15 mg/dL (5-40)
--- NOTE | 2019-04-10 11:33 | PCM.PN.CARD ---
Subjectve: The patient appears to be resting comfortably this morning. She is not complaining of ongoing chest discomfort or difficulty breathing. She states she does note her palpitations and heart rate changes at home. Objective: Vital Signs Temp Pulse Resp BP Pulse Ox 98.3 F 78 16 116/83 H 96 04/10/19 08:00 04/10/19 11:00 04/10/19 11:00 04/10/19 11:00 04/10/19 11:00 Oxygen Flow Rate (L/min) 2 Oxygen Delivery Method Room Air Weight: 143 lb 11.862 oz Body Mass Index (BMI) 24.6 Intake and Output for Last 24 Hours 04/08/19 04/09/19 04/10/19 23:59 23:59 23:59 Intake Total 2252.75 / 2252.75 Output Total 100 / 100 Balance 2152.75 / 2152.75 General: Awake, Cooperative, No Acute Distress HEENT: Atraumatic, Normocephalic, PERRL, EOMI, Sclera Non Icteric Oral: Moist Mucosa Neck: Supple, Good ROM, No JVD Lungs: Clear to auscultation Cardiovascular: Irregular Rhythm, Normal S1, Normal S2 Vascular: Normal Femoral Pulses Abdomen: Bowel Sounds Present, Soft, Non Tender Extremities: No edema, - - Right inguinal area: Positive ecchymoses; pulse 2+/4+; no bruits; no hematoma Psych/Mental Status: Flat Affect 04/09/19 22:58: PT 28.6 H, INR 2.7, APTT 46.2 H 04/09/19 23:00: WBC 5.7, RBC 3.85 L, Hgb 11.9 L, Hct 35.8 L, MCV 93.0, MCH 30.9, MCHC 33.2, Plt Count 147 L, MPV 10.3, Immature Gran % (Auto) 0.500, Neut % (Auto) 69.1, Lymph % (Auto) 17.7 L, [place] % (Auto) 10.3 H, Eos % (Auto) 1.9, Baso % (Auto) 0.5, Absolute Neuts (auto) 3.9, Nucleated RBC % 0 04/09/19 23:00: Sodium 140, Potassium 4.7, Chloride 105, Carbon Dioxide 30.0, Anion Gap 5, BUN 25 H, Creatinine 1.06 H, Est GFR (MDRD) Af Amer 64, Est GFR (MDRD) Non-Af 53 L, BUN/Creatinine Ratio 23.6 H, Glucose 121 H, Calcium 8.6, Troponin I < 0.015 04/10/19 02:25: Troponin I 0.074 H 04/10/19 04:57: WBC 6.6, RBC 3.73 L, Hgb 11.3 L, Hct 34.6 L, MCV 92.8, MCH 30.3, MCHC 32.7, Plt Count 144 L, MPV 10.4, Immature Gran % (Auto) 0.200, Neut % (Auto) 83.5 H, Lymph % (Auto) 7.9 L, [place] % (Auto) 7.9, Eos % (Auto) 0.2, Baso % (Auto) 0.3, Absolute Neuts (auto) 5.5, Nucleated RBC % 0 04/10/19 04:57: Sodium 140, Potassium 5.1, Chloride 109 H, Carbon Dioxide 26.0, Anion Gap 5, BUN 22 H, Creatinine 0.74, Est GFR (MDRD) Af Amer 98, Est GFR (MDRD) Non-Af 81, BUN/Creatinine Ratio 29.9 H, Glucose 128 H, Calcium 7.7 L, Total Bilirubin 1.20 H, Troponin I 0.087 H 04/10/19 04:57: Triglycerides 73, Cholesterol 138, LDL Cholesterol 63, VLDL Cholesterol 15, HDL Cholesterol 60 Rhythm: Atrial fibrillation/flutter EKG: Atrial fibrillation/flutter; nonspecific ST/T wave abnormality; cannot exclude precordial lead misplacement Medical Necessity - Tobacco Use Smoking Status: Never smoker Tobacco Use: Non-smoker Assessment/Plan 1. Atrial fibrillation/flutter The present time she will continue medical management. This will include rate control therapy. Is also on antiarrhythmic therapy. However if she remains in underlying atrial fibrillation/flutter then perhaps she will no longer need to continue antiarrhythmic medication. Once she has recuperated from her cardiac catheterization she should be considered for return to her anticoagulant. 2. Hypertension Her blood pressure will be followed. Her medications can be adjusted as needed to try and bring her blood pressure under reasonably good control. 3. Thromboembolic disease: History of PE She does have a history of PE. She has been on medical management with anticoagulant therapy. 4. Parkinson's disease She will continue evaluation care per internal medicine. Of note, the patient underwent urgent/emergent evaluation earlier for concerns of a STEMI. Based upon Dr. Darby's cardiac catheterization procedure this was subsequently concluded to be a false STEMI. She had underlying CAD but it was considered non-angiographically significant. She was asked to continue medical therapy and when she recuperates from her diagnostic cardiac catheterization to resume anticoagulant therapy for her atrial dysrhythmia. This note was generated using a voice recognition system and there may be incorrect words, spelling or punctuation that were not noted when reviewing the office note prior to saving.
[2019-04-10] MEDS: Metoprolol Tartrate 50 MG Tablet PO (21:04)
[2019-04-10] MEDS: Atorvastatin Calcium 20 MG Tablet PO (21:04)
[2019-04-11] VITALS (7 sets, daily range): BP systolic 132–168; BP diastolic 82–108; PULSE 74–99; RESP 14–20; TEMP 36.8–37.4; O2SAT 95–98
[2019-04-11] MEDS: Ibuprofen 600 MG Tablet PO (01:36)
[2019-04-11] MEDS: CARBIDOPA/LEVODOPA CR 50/200 Tablet PO ×2 (05:00→13:17)
[2019-04-11] MEDS: Propafenone 150 MG Tablet PO ×2 (05:00→13:17)
[2019-04-11 05:20] LABS: Absolute Lymphocyte Count 1.14 X10^3/uL (0.83-4.51); Absolute Neutrophil Count 5.8 X10^3/uL (2.0-7.7); Basophil# 0.03 X10^3/uL; Basophil% 0.4 % (0-1); Eosinophil# 0.03 X10^3/uL; Eosinophils% 0.4 % (0-5); Hematocrit 32.1 % (37-47); Hemoglobin 10.4 g/dL (12.0-15.0); Lymphocyte # 1.14 X10^3/ul (4.0); Lymphocyte % 14.4 % (19-41); Mean Corp Hgb Conc 32.4 g/dL (32-36); Mean Corpuscular Hgb 29.6 pg (27.0-32.0); Mean Corpuscular Volume 91.5 fL (81-99); Mean Platelet Vol. 10.6 fl (6.2-12.0); Monocyte# 0.89 X10^3/uL; Monocyte% 11.2 % (0-10); NRBC Flagged by Analyzer 0 % (0-5); Neutrophil % 73.2 % (47-70); Platelet Count 111 K/mm3 (150-450); RBC Distribution Width CV 14.9 % (11.6-14.6); RBC Distribution Width SD 50.1 fl (35.1-43.9); Red Blood Count 3.51 M/mm3 (4.2-5.4); White Blood Count 7.9 K/mm3 (4.4-11.0)
[2019-04-11 05:37] LABS: Anion Gap 7 (5-15); BUN 26 mg/dL (7-18); BUN/Creat Ratio 31.2 RATIO (10-20); Calcium,Total 8.4 mg/dL (8.5-10.1); Chloride 105 mmol/L (98-107); Creatinine, Serum 0.83 mg/dL (0.55-1.02); EST Glomerular Filtration Rate 70 mL/min (>60); Est Glom Filt Rate - Afr Amer 84 mL/min (>60); Glucose 107 mg/dL (74-106); Potassium 4.1 mmol/L (3.5-5.1); Sodium Level 136 mmol/L (136-145)
--- NOTE | 2019-04-11 05:55 | EKG12_ITS ---
Test Reason : AM EKG Blood Pressure : / mmHG Vent. Rate : 087 BPM Atrial Rate : 288 BPM P-R Int : 000 ms QRS Dur : 102 ms QT Int : 388 ms P-R-T Axes : 000 036 136 degrees QTc Int : [address] elevation consider inferior injury or acute infarct Consider Pericarditis Consider right ventricular involvement in acute inferior infarct Abnormal ECG When compared with ECG of 10-APR-2019 05:52, MANUAL COMPARISON REQUIRED, DATA IS UNCONFIRMED Confirmed by BREE HESS, ARIC ([id number]), editorial writer SILVA CUEVAS ([id number]) on 04/12/2019 10:31:54 AM Referred By: Yahir Darby Confirmed By:ARIC GIRON MD
--- NOTE | 2019-04-11 08:01 | ECHOD_ITS ---
Version 2 Reason For Study: ATRIAL FIB-FLUTTER Procedure This was a 2D Doppler, Color Flow transthoracic echocardiogram. Exam performed portable in ICU/CCU. Left Ventricle Mild concentric left ventricular hypertrophy. The estimated ejection fraction is 65-70 %. Unable to assess diastolic dysfunction due to arrhythmia. No regional wall motion abnormalities noted. Right Ventricle Normal size and thickness. Normal systolic function. Atria The left atrium is moderately enlarged. The right atrium is mildly enlarged. Normal atrial septum. Mitral Valve The mitral valve is structurally normal. No prolapse or stenosis seen. Trivial mitral valve insufficiency. Tricuspid Valve Normal tricuspid valve. Mild tricuspid valve insufficiency. Right ventricular systolic pressure estimated to be 42 mmHg. Mild pulmonary hypertension. Aortic Valve Trisinus/trileaflet aortic valve. Mild focal aortic valve thickening. There is no aortic stenosis. Trivial aortic valve insufficiency. Pulmonic Valve Normal pulmonic valve. Great Vessels Normal aortic root. Mild atherosclerosis of the aortic arch. The inferior vena cava is dilated. No collapse of the inferior vena cava. Pericardium/Pleural Trivial pericardial effusion. Circumferential effusion. There are no echocardiographic indications of cardiac tamponade. Small left pleural effusion. MMode/2D Measurements & Calculations LVIDd: 4.3 cm IVSd: 0.99 cm Ao root diam: 3.1 cm LVIDs: 3.0 cm LVPWd: 1.0 cm RVDd: 2.8 cm FS: 30.8 % LAV(MOD-bp): 75.7 ml LVAd ap4: 22.2 cm2 SV(MOD-sp4): 36.8 ml LAV(MOD-bp) Indexed: 44.7 ml/m2 EDV(MOD-sp4): 64.6 ml LAV(MOD-sp2): 73.4 ml EDV(sp4-el): 65.4 ml LAV(MOD-sp4): 71.7 ml LVAs ap4: 13.7 cm2 ESV(MOD-sp4): 27.7 ml ESV(sp4-el): 28.1 ml EF(MOD-sp4): 57.0 % EF(sp4-el): 56.9 % SV(sp4-el): 37.2 ml Aortic Valve Planimetry: 2.0 cm2 LA A4 area: 22.3 cm2 LA dimension(2D): 4.6 cm RA A4 area: 20.2 cm2 Doppler Measurements & Calculations MV E max rudy: 98.9 cm/sec Ao V2 max: 154.9 cm/sec LV V1 max: 72.8 cm/sec Ao max P.6 mmHg LV V1 max P.1 mmHg PA V2 max: 67.8 cm/sec TR max rudy: 258.9 cm/sec TR max P.8 mmHg Interpretation Summary Mild concentric left ventricular hypertrophy. The estimated ejection fraction is 65-70 %. Unable to assess diastolic dysfunction due to arrhythmia. The left atrium is moderately enlarged. The right atrium is mildly enlarged. Trivial mitral valve insufficiency. Mild tricuspid valve insufficiency. Right ventricular systolic pressure estimated to be 42 mmHg. Mild pulmonary hypertension. Trivial aortic valve insufficiency. Trivial pericardial effusion. Circumferential effusion. There are no echocardiographic indications of cardiac tamponade. Small left pleural effusion. Patient appears to be in atrial fibrillation. There is no comparison study available. Ordering Physician: Yahir Darby Referring Physician: ASHWIN STEPHENSON Performed By: Lynette Murphy RDCS
--- NOTE | 2019-04-11 08:04 | PCM.PN.CARD ---
Subjectve: Patient seen and examined this morning. Chest pain is completely resolved with ibuprofen therapy. Patient still remains in atrial fibrillation with rapid ventricular response, maintains on per path known. Xarelto was held since admission. Right groin is clean/dry/intact without evidence of thrills, bruits or hematoma. Mild ecchymosis inferiorly and laterally. 2+ DP and PT pulses bilaterally. Creatinine and hemoglobin stable. Objective: Vital Signs Temp Pulse Resp BP Pulse Ox 98.3 F 82 20 H 133/89 H 97 04/11/19 01:39 04/11/19 03:30 04/11/19 01:39 04/11/19 01:39 04/11/19 01:39 Oxygen Flow Rate (L/min) 2 Oxygen Delivery Method Room Air Weight: 142 lb 3.17 oz Body Mass Index (BMI) 24.6 Intake and Output for Last 24 Hours 04/09/19 04/10/19 04/11/19 23:59 23:59 23:59 Intake Total 3262.75 / 3512.75 425 / 425 Output Total 580 / 1130 800 / 800 Balance 2682.75 / 2382.75 -375 / -375 General: Awake, Alert, Oriented x 3 HEENT: PERRL, EOMI, Sclera Non Icteric Neck: Supple, Good ROM, No Lymph Node Enlargement Lungs: Clear to auscultation Cardiovascular: Irregular Rhythm, Normal S1, Normal S2, No Murmurs, No Rubs, No Gallops Vascular: No Carotid Bruits, Normal Femoral Pulses, Normal Radial Pulses, Normal Dorsalis Pedal Pulse, Normal Posterior Tibial Pulses Abdomen: Bowel Sounds Present, Soft, Non Tender, No HSM, No Organomegaly Extremities: No Cyanosis, No Clubbing, No edema Neurological: No Focal Motor or Sensory Deficit 04/10/19 04:57: Triglycerides 73, Cholesterol 138, LDL Cholesterol 63, VLDL Cholesterol 15, HDL Cholesterol 60 04/11/19 04:58: WBC 7.9, RBC 3.51 L, Hgb 10.4 L, Hct 32.1 L, MCV 91.5, MCH 29.6, MCHC 32.4, Plt Count 111 L, MPV 10.6, Immature Gran % (Auto) 0.400, Neut % (Auto) 73.2 H, Lymph % (Auto) 14.4 L, [place] % (Auto) 11.2 H, Eos % (Auto) 0.4, Baso % (Auto) 0.4, Absolute Neuts (auto) 5.8, Nucleated RBC % 0 04/11/19 04:58: Sodium 136, Potassium 4.1, Chloride 105, Carbon Dioxide 24.0, Anion Gap 7, BUN 26 H, Creatinine 0.83, Est GFR (MDRD) Af Amer 84, Est GFR (MDRD) Non-Af 70, BUN/Creatinine Ratio 31.2 H, Glucose 107 H, Calcium 8.4 L Rhythm: EKG: ECHO: Stress Test: Cardiac Cath: PCI: CT Surgery: Holter monitor: EPS: PPM: CXR: Chest CT Scan: Medical Necessity - Tobacco Use Smoking Status: Never smoker Tobacco Use: Non-smoker Assessment/Plan 1. Chest pain: The patient appears to presented with acute onset chest pain, which appears to be well controlled with ibuprofen therapy suggesting pericarditis or pleuritis. Patient's emergent left heart catheterization demonstrated minimal nonobstructive coronary disease and she has had minimal troponin release which may be a result of her pericarditis. Recommend the patient continue on baby aspirin but we have discontinued her Brilinta after 1 dose. We are holding her Xarelto to allow her groin to heal prior to restarting it for her atrial fibrillation. In the meantime we will increase her metoprolol to 75 mg p.o. twice daily, and start Cozaar 25 mg p.o. daily for hypertension and peripheral vascular disease given her severe tortuous aortic iliac system. In addition she will undergo a 2D echo with Doppler to document her LV function, valvular status, and pulmonary pressures. She does not appear as though she is had a recurrent pulmonary embolism based upon clinical examination and is currently on room air. Would recommend ibuprofen 600 mg every 8 hours for 5 days time for presumed pericarditis. 2. Atrial fibrillation: Recommend holding off on Xarelto at least 1 week's time to allow her groin to completely heal. Again we will increase her beta-jeri to 75 mg p.o. twice daily, and start Cozaar 25 mg p.o. daily for hypertension. In addition we will continue her on propafenone therapy in the event that she may chemically convert back to normal sinus rhythm. She is not aware that she is in atrial fibrillation. Patient may be a candidate for DC cardioversion in 3 to 4 weeks time. 3. Pulmonary embolism: Patient does have a history of pulmonary embolism. For this reason she will require Xarelto therapy for both her atrial fibrillation and history of pulmonary embolism. 4. Thank you very much for the opportunity to participate in the cardiac care of your patient. The patient may be downgraded to PCU status and would encourage ambulation. The patient's heart rate and blood pressure are under good control, she may be able to be discharged home later this afternoon after her echocardiogram is been completed. Code Visit Inpatient E&M: 56610 Subs Hosp L2
--- NOTE | 2019-04-11 08:40 | DCINST_ITS ---
- Discharge Diagnoses Current Active Problems: Current Active and Chronic Problems (Last Updated 12/21/17 @ 14:03 by Brisa Escobedo) History of left heart catheterization (Chronic 04/10/19) Non obstructive coronary arteries; Perserved Left Ventricular systolic function with normal EDP False positive EKG for STEMI. No acutely occluded lesion detected. 04/10/2019 per DJN @ [facility] Chest pain (Acute) Parkinsons disease (Chronic) You will use the following diet at home:: Cardiac Your food should be the consistency of: Regular Discharge Activity: May Not Drive Call your doctor if you observe: Fever of 101 or Higher, Coldness, Increased Pa in, Change in Color, Inability to urinate, Inability to have a bowel movement, Using more than one pad per hour, Shortness of breath, Dizziness, Fainting spells, Swelling in the ankles, Chest pain, Prolonged hiccoughing, Increased palpitations (irregular heartbeat) Allergies/Adverse Reactions: Allergies ampicillin Allergy (Verified 12/21/17 14:01) Unknown Medications to take at Discharge Rivaroxaban [Xarelto] 20 mg PO DAILY 12/21/17 Carbidopa/Levodopa 50/200 [Sinemet CR 50/200] 1 tab PO TID 04/09/19 Propafenone HCl 1 tab PO TID 04/09/19 Atorvastatin Calcium [Lipitor] 20 mg PO QHS #30 tab 04/11/19 Ibuprofen [Motrin] 600 mg PO Q8H PRN PRN #20 tab 04/11/19 Losartan Potassium [Cozaar] 25 mg PO DAILY #30 tab 04/11/19 Metoprolol Tartrate [Lopressor (beta jeri)] 75 mg PO BID #120 tab 04/11/19 The following prescriptions were given: Losartan Potassium [Cozaar] 25 mg PO DAILY #30 tab Transmission Status: Received by [facility] #[id number] Atorvastatin Calcium [Lipitor] 20 mg PO QHS #30 tab Transmission Status: Received by [facility]/pharmacy #[id number] Metoprolol Tartrate [Lopressor (beta jeri)] 75 mg PO BID #120 tab Transmission Status: Re[facility] by [id number] Ibuprofen [Motrin] 600 mg PO Q8H PRN PRN #20 tab PRN Reason: Pericarditis pain Transmission Status: [id number] Primary Care Physician: Anai Escalante DO [Primary Care Provider] - Please follow up with your Primary Care Physician in: in 2 week Test Results: Test results from this visit will be discussed in further detail at your follow- up appointment, if applicable. Please Follow Up With: Yahir Darby MD When: in 2 weeks
--- NOTE | 2019-04-11 09:41 | CASEMGMT ---
RN CM Assessment Presentation: Pulmonary Embolism Intro role of CM and purpose of RN CM assessment to patient's son via phone. Per nursing, pt having some confusion this am and currently echo being done. Demographics, PCP and Pharmacy verified. Per son, pt has been independent at home despite episodes of confusion (mostly @ night). Son states pt calls him @ night several times. States no safety concerns at this time, but pt has Parkinson's and son is wishing to have her move in with him in near future. Son states dc plans includes him staying with pt at night and also assisting with medications. RN CM encouraged someone to be with pt first few days for safety and re-acclimating to home environment. PCP: Dr. Avendaño Specialists: Dr. Darby Preferred Pharmacy: [facility] Insurance: [facility] Prescription Benefit: yes LNOK: Son Rob Javier Living Arrangements: Lives alone in ranch home. Per son, pt has been independent with ADL. Family checks on pt often and assists with driving, shopping, medication mgmt. Son will be staying with pt on dc and working on moving pt in with him. Transportation: family drives DME: has walker, cane- does not use. HHC/SNF: none past SW Referral: no Patient DC goals: Home DC PLAN: Home with family support. Nahum IBANEZ RN ACM
[2019-04-11] MEDS: Losartan Potassium 25 MG Tablet PO (10:09)
[2019-04-11] MEDS: Metoprolol Tartrate 25 MG Tablet 75 MG PO (10:09)
--- NOTE | 2019-04-11 13:54 | DS.PCM_ITS ---
Discharge Date and Diagnosis - Problem List Patient Problems: Active and Suspected Problems (Last Updated 12/21/17 @ 14:03 by Brisa Escobedo) Chest pain (Acute) Date of Admission: 04/10/19 Date of Discharge: 04/11/19 - Primary Discharge Diagnosis Active and Suspected Problems (Last Updated 12/21/17 @ 14:03 by Brisa Escobedo) Chest pain (Acute) - Secondary Discharge Diagnosis Chronic Problems (Last Updated 12/21/17 @ 14:03 by Brisa Escobedo) History of left heart catheterization (Chronic 04/10/19) Non obstructive coronary arteries; Perserved Left Ventricular systolic fu nction with normal EDP False positive EKG for STEMI. No acutely occluded lesion detected. 04/10/2019 per DJN @ [facility] Traumatic wound (Chronic) Wound, surgical, nonhealing (Chronic) Pulmonary embolism (Chronic) Atrial fibrillation (Chronic) Anticoagulated (Chronic) Hypertension (Chronic) History of skin cancer (Chronic) Parkinsons disease (Chronic) Hospital Course and Treatment Imaging Results: 04/11/19 08:01 Echo Complete [ECHO] Routine Summary of Care Provided: This 83-year-old female was admitted with chest pain with radiation to back and left shoulder from ER. Initial EKG shows ST elevation in lead III aVF and T wave inversion in lateral leads. STEMI alert was called patient had emergent cardiac cath which showed nonobstructive coronary artery disease with preserved LV systolic function. 1. Atypical chest pain mostly secondary to acute pericarditis: Pain is well controlled with ibuprofen. Patient is on metoprolol which is increased to 75 mg p.o. twice daily to control her heart rate, Cozaar 25 mg daily. Advised to hold Xarelto as she has cardiac cath from right femoral artery and also on ibuprofen. * Aspirin and Brilinta was discontinued. 2. Hypertension: On metoprolol and Cozaar. 3. Parkinson's disease: Patient has very flat affect currently. On Sinemet. On exam no muscle rigidity or stiffness. 4. History of PE: Had PE 2 years ago. 5. Chronic atrial fibrillation: Metoprolol increased to 75 mg twice daily. Patient advised to hold Xarelto for 1 week for right groin to heal. DVT Prophylaxis: SCDs Discharge medication reconciliation done. Discharge follow-up instructions completed. Discharge process discussed with the patient and all questions were answered to patient's satisfaction. Total time spent, exact 35 minutes on discharge meds reconciliation, examination, review of imaging and blood test and discussion with the patient on follow-up instructions. 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 fib; chronic in nature. Denies any chest pain or shortness of breath. Heart rate was upper 90s in the morning which is controlled. Most recent 84/min. - Physical Exam Vitals/I&O's: Vital Signs Temp Pulse Resp BP Pulse Ox 99.1 F 84 17 133/84 H 98 04/11/19 08:00 04/11/19 10:09 04/11/19 08:00 04/11/19 10:09 04/11/19 08:00 Oxygen Flow Rate (L/min) 2 Oxygen Delivery Method Room Air Weight: 142 lb 3.17 oz Body Mass Index (BMI) 24.6 Intake and Output for Last 24 Hours 04/09/19 04/10/19 04/11/19 23:59 23:59 23:59 Intake Total 3262.75 / 3512.75 425 / 425 Output Total 580 / 1130 800 / 800 Balance 2682.75 / 2382.75 -375 / -375 General: Alert, Oriented x3, Cooperative HEENT: Atraumatic, PERRLA, EOMI, Normocephalic Neck: Supple, No JVD, Negative Carotid Bruits Lungs: Clear to auscultation, Normal air movement, No rhonchi, No wheeze, No rales Cardiovascular: Regular rate, Normal S1, Normal S2, No murmurs, Irregular Rate Abdomen: Bowel Sounds Present, Soft, Non Tender, Non-Distended Extremities: Capillary Refill Less than 3 Seconds, Edema Skin: No rashes, No breakdown Musculoskeletal: No Tenderness to Palpation of Joints or Extremities Neurological: Cranial nerves II-XII grossly intact, Deep Tendon Reflexes 2+/4 and Symmetrical, Neuro grossly intact Psych/Mental Status: Normal Affect, Appropriate Laboratory Results 04/11/19 04:58: WBC 7.9, RBC 3.51 L, Hgb 10.4 L, Hct 32.1 L, MCV 91.5, MCH 29.6, MCHC 32.4, RDW Std Deviation 50.1 H, RDW Coeff of Wanda 14.9 H, Plt Count 111 L, MPV 10.6, Immature Gran % (Auto) 0.400, Neut % (Auto) 73.2 H, Lymph % (Auto) 14 .4 L, Perry % (Auto) 11.2 H, Eos % (Auto) 0.4, Baso % (Auto) 0.4, Absolute Neuts (auto) 5.8, Absolute Lymphs (auto) 1.14, Nucleated RBC % 0 04/11/19 04:58: Sodium 136, Potassium 4.1, Chloride 105, Carbon Dioxide 24.0, Anion Gap 7, BUN 26 H, Creatinine 0.83, Estim Creat Clear Calc 45.90, Est GFR (MDRD) Af Amer 84, Est GFR (MDRD) Non-Af 70, BUN/Creatinine Ratio 31.2 H, Glucose 107 H, Calcium 8.4 L Current Medications Acetaminophen (Tylenol) 650 mg PO Q6H PRN PRN PRN Reason: Pain Score 1-3/Temp > 100.7 F Last Admin: 04/10/19 10:08 Dose: 650 mg Documented by: Al Hydroxide/Mg Hydroxide (Mylanta Ii) 30 ml PO Q6H PRN PRN PRN Reason: Gastric Burning Atorvastatin Calcium (Lipitor) 20 mg PO QHS [facility] Last Admin: 04/10/19 21:04 Dose: 20 mg Documented by: Carbidopa/Levodopa (Sinemet Cr) 1 tablet PO TID [facility] Last Admin: 04/11/19 13:17 Dose: 1 tablet Documented by: Heparin Sodium (Beef Lung) (Heparin 500 Unit/5 Ml (100/Ml)) 500 unit IV UD PRN PRN Reason: HEPARIN FLUSH Ibuprofen (Motrin) 600 mg PO Q8H PRN PRN PRN Reason: Pain Score 4-10/10 Last Admin: 04/11/19 01:36 Dose: 600 mg Documented by: Labetalol HCl (Trandate) 5 mg IV X1 PRN PRN Reason: SBP > 160 prior to sheath pull Losartan Potassium (Cozaar) 25 mg PO DAILY [facility] Last Admin: 04/11/19 10:09 Dose: 25 mg Documented by: Metoprolol Tartrate (Lopressor (Beta Abebe)) 75 mg PO BID [facility] Last Admin: 04/11/19 10:09 Dose: 75 mg Documented by: Morphine Sulfate () 2 mg IV Q3H PRN PRN PRN Reason: Pain Score 6-10/10 Last Admin: 04/10/19 06:04 Dose: 2 mg Documented by: Ondansetron HCl (Zofran) 4 mg IV Q8H PRN PRN PRN Reason: NAUSEA/VOMITING Oxycodone HCl (Oxyir) 5 mg PO Q4H PRN PRN PRN Reason: Pain Score 4-5/10 Last Admin: 04/10/19 03:59 Dose: 5 mg Documented by: Propafenone HCl (Rythmol) 150 mg PO Q8 [facility] Last Admin: 04/11/19 13:17 Dose: 150 mg Documented by: Psyllium Hydrophilic Mucilloid (Metamucil) 1 packet PO DAILY PRN PRN PRN Reason: Constipation Senna/Docusate Sodium (Senokot-S, Qian-Colace) 2 tablet PO BID PRN PRN PRN Reason: Constipation Sodium Chloride () 10 - 40 ml IV UD PRN PRN Reason: SALINE FLUSH Last Admin: 04/10/19 06:05 Dose: 40 ml Documented by: Discharge Activity: May Not Drive Call your doctor if you observe: Fever of 101 or Higher, Coldness, Increased Pain, Change in Color, Inability to urinate, Inability to have a bowel movement, Using more than one pad per hour, Shortness of breath, Dizziness, Fainting spells, Swelling in the ankles, Chest pain, Prolonged hiccoughing, Increased palpitations (irregular heartbeat) Home Medications: Medications to take at Discharge Rivaroxaban [Xarelto] 20 mg PO DAILY 12/21/17 Carbidopa/Levodopa 50/200 [Sinemet CR 50/200] 1 tab PO TID 04/09/19 Propafenone HCl 1 tab PO TID 04/09/19 Atorvastatin Calcium [Lipitor] 20 mg PO QHS #30 tab 04/11/19 Ibuprofen [Motrin] 600 mg PO Q8H PRN PRN #20 tab 04/11/19 Losartan Potassium [Cozaar] 25 mg PO DAILY #30 tab 04/11/19 Metoprolol Tartrate [Lopressor (beta abebe)] 75 mg PO BID #120 tab 04/11/19 Following Prescrptions Were Given to Patient: Losartan Potassium [Cozaar] 25 mg PO DAILY #30 tab Transmission Status: [id number] Atorvastatin Calcium [Lipitor] 20 mg PO QHS #30 tab Transmission Status: [id number] Metoprolol Tartrate [Lopressor (beta abebe)] 75 mg PO BID #120 tab Transmission Status: [id number] Ibuprofen [Motrin] 600 mg PO Q8H PRN PRN #20 tab PRN Reason: Pericarditis pain Transmission Status: [id number] Primary Care Physician: Anai Escalante DO [Primary Care Provider] - Please follow up with your Primary Care Physician in: in 2 week Please Follow Up With: Broderick Benson, BLOOD BANK ASSISTANT-C When: in 2 weeks Medical Necessity - Tobacco Use Smoking Status: Never smoker Tobacco Use: Non-smoker Meaningful Use Info Meaningful Use Diagnoses (Choose all that apply): None applicable Code Visit Inpatient E&M: 77236 Disch Hosp
--- NOTE | 2019-04-11 14:40 | CHAPLAIN ---
Type of Pastoral Visit _x__ Initial Visit ___ Follow-up Visit ___ On-call Visit ___ General Patient Visit ___ Spiritual Assessment ___ Family Conference ___ Bereavement ___ Rapid Response ___ Code Blue ___ Other (describe below) Pastoral Care Referral From _x__ Patient ___ Family ___ Nurse ___ Physician ___ Livestock Caretaker ___ Dealer Account Manager ___ Other (describe below) Sacrament/Intervention _x__ Active listening ___ Anointing ___ Tenriism ___ Bereavement ___ Communion ___ Kristina exploration ___ _x__ Life review _x__ Prayer ___ Reconciliation ___ Sacrament of Sick _x__ Supportive presence ___ Wedding ___ Other (describe below) Pastoral Comments
== END 2019-04-11 13:40 | disposition home or self-care (01) | DRG 287 ==
LOC: ED 23:34 → ICU 04-10 01:36
PROVIDERS: Student in an Organized Health Care Education/Training Program; Admitting Provider Internal Medicine; Emergency Provider Emergency Medicine; Family Provider Family Medicine; PCP Family Medicine; Referring Provider Internal Medicine Cardiovascular Disease; Visit Provider Internal Medicine
DX: I30.9 Acute pericarditis, unspecified (principal); I48.20 Chronic atrial fibrillation, unspecified; G20 Parkinson's disease; I25.10 Atherosclerotic heart disease of native coronary artery without angina pectoris; I10 Essential (primary) hypertension; Z86.711 Personal history of pulmonary embolism; Z79.01 Long term (current) use of anticoagulants; I73.9 Peripheral vascular disease, unspecified; Z85.828 Personal history of other malignant neoplasm of skin
CPT/HCPCS: 71045; 75625; 80048; 80053; 80061; 84484; 85025; 85347; 85610; 85730; 93005; 93306; 93458; 97802; 99152; 99153; 99251; 99285; C1760; J7030; J7040; Q9957; A4216; C1769; C1887; C1894; G0463; Q9967

== ENCOUNTER → 2022-01-17 | Outpatient (REF) | payer MEDICARE, SELFPAY ==
[2022-01-17 08:50] LABS: Absolute Lymphocyte Count 1.12 X10^3/uL (0.83-4.51); Absolute Neutrophil Count 2.4 X10^3/uL (2.0-7.7); Basophil# 0.05 X10^3/uL; Basophil% 1.2 % (0-1); Eosinophil# 0.13 X10^3/uL; Eosinophils% 3.2 % (0-5); Hematocrit 31.8 % (37-47); Hemoglobin 10.4 g/dL (12.0-15.0); Lymphocyte # 1.12 X10^3/ul (0.83-4.51); Lymphocyte % 27.9 % (19-41); Mean Corp Hgb Conc 32.7 g/dL (32-36); Mean Corpuscular Hgb 32.4 pg (27.0-32.0); Mean Corpuscular Volume 99.1 fL (81-99); Mean Platelet Vol. 10.1 fl (6.2-12.0); Monocyte# 0.35 X10^3/uL; Monocyte% 8.7 % (0-10); NRBC Flagged by Analyzer 0 % (0-5); Neutrophil # 2.35 X10^3/uL (2.7-7.7); Neutrophil % 58.8 % (47-70); Platelet Count 162 K/mm3 (150-450); RBC Distribution Width CV 15.3 % (11.6-14.6); RBC Distribution Width SD 56.2 fl (35.1-43.9); Red Blood Count 3.21 M/mm3 (4.2-5.4)
[2022-01-17 09:02] LABS: Anion Gap 5 (5-15); BUN 19 mg/dL (7-18); BUN/Creat Ratio 28.8 RATIO (10-20); Calcium,Total 8.7 mg/dL (8.5-10.1); Chloride 110 mmol/L (98-107); Creatinine, Serum 0.66 mg/dL (0.55-1.02); EST Glomerular Filtration Rate 91 mL/min (>60); Est Glom Filt Rate - Afr Amer 110 mL/min (>60); Glucose 91 mg/dL (74-106); Magnesium 2.3 mg/dL (1.6-2.6); Potassium 3.4 mmol/L (3.5-5.1); Sodium Level 141 mmol/L (136-145)
== END ==
LOC: OLS.WHLTSB 05:00
PROVIDERS: PCP Family Medicine; Visit Provider Family Medicine
DX: M62.81 Muscle weakness (generalized) (principal); S72.042D Displaced fracture of base of neck of left femur, subsequent encounter for closed fracture with routine healing; I48.21 Permanent atrial fibrillation; Z47.89 Encounter for other orthopedic aftercare; Z74.1 Need for assistance with personal care; D50.9 Iron deficiency anemia, unspecified
CPT/HCPCS: 36415; 80048; 83735; 85025

== ENCOUNTER → 2022-02-14 | Outpatient (REF) | payer MEDICARE, SELFPAY ==
[2022-02-14 09:00] LABS: Absolute Lymphocyte Count 1.22 X10^3/uL (0.83-4.51); Absolute Neutrophil Count 1.9 X10^3/uL (2.0-7.7); Basophil# 0.04 X10^3/uL; Basophil% 1.1 % (0-1); Eosinophil# 0.12 X10^3/uL; Eosinophils% 3.4 % (0-5); Hematocrit 34.7 % (37-47); Hemoglobin 11.4 g/dL (12.0-15.0); Lymphocyte # 1.22 X10^3/ul (0.83-4.51); Lymphocyte % 34.1 % (19-41); Mean Corp Hgb Conc 32.9 g/dL (32-36); Mean Corpuscular Hgb 31.5 pg (27.0-32.0); Mean Corpuscular Volume 95.9 fL (81-99); Mean Platelet Vol. 10.4 fl (6.2-12.0); Monocyte# 0.32 X10^3/uL; Monocyte% 8.9 % (0-10); NRBC Flagged by Analyzer 0 % (0-5); Neutrophil # 1.88 X10^3/uL (2.7-7.7); Neutrophil % 52.5 % (47-70); Platelet Count 148 K/mm3 (150-450); RBC Distribution Width CV 14.2 % (11.6-14.6); RBC Distribution Width SD 50.3 fl (35.1-43.9); Red Blood Count 3.62 M/mm3 (4.2-5.4); White Blood Count 3.6 K/mm3 (4.4-11.0)
[2022-02-14 09:15] LABS: Anion Gap 6 (5-15); BUN 22 mg/dL (7-18); BUN/Creat Ratio 32.6 RATIO (10-20); Calcium,Total 8.6 mg/dL (8.5-10.1); Chloride 108 mmol/L (98-107); Creatinine, Serum 0.68 mg/dL (0.55-1.02); EST Glomerular Filtration Rate 88 mL/min (>60); Est Glom Filt Rate - Afr Amer 107 mL/min (>60); Glucose 80 mg/dL (74-106); Magnesium 2.3 mg/dL (1.6-2.6); Sodium Level 140 mmol/L (136-145)
== END ==
LOC: OLS.WHLTSB 05:00
PROVIDERS: PCP Family Medicine; Visit Provider Family Medicine
DX: S72.042D Displaced fracture of base of neck of left femur, subsequent encounter for closed fracture with routine healing (principal); I48.21 Permanent atrial fibrillation; D50.9 Iron deficiency anemia, unspecified
CPT/HCPCS: 36415; 80048; 83735; 85025

== ENCOUNTER → 2022-03-14 | Outpatient (REF) | payer MEDICARE, SELFPAY ==
[2022-03-14 08:42] LABS: Absolute Lymphocyte Count 1.18 X10^3/uL (0.83-4.51); Absolute Neutrophil Count 1.7 X10^3/uL (2.0-7.7); Basophil# 0.05 X10^3/uL; Basophil% 1.5 % (0-1); Hematocrit 34.5 % (37-47); Hemoglobin 11.4 g/dL (12.0-15.0); Lymphocyte # 1.18 X10^3/ul (0.83-4.51); Lymphocyte % 35.2 % (19-41); Mean Corpuscular Hgb 30.9 pg (27.0-32.0); Mean Corpuscular Volume 93.5 fL (81-99); Mean Platelet Vol. 10.7 fl (6.2-12.0); Monocyte# 0.34 X10^3/uL; Monocyte% 10.1 % (0-10); NRBC Flagged by Analyzer 0 % (0-5); Neutrophil # 1.67 X10^3/uL (2.7-7.7); Neutrophil % 49.9 % (47-70); Platelet Count 126 K/mm3 (150-450); RBC Distribution Width CV 14.5 % (11.6-14.6); RBC Distribution Width SD 48.8 fl (35.1-43.9); Red Blood Count 3.69 M/mm3 (4.2-5.4); White Blood Count 3.4 K/mm3 (4.4-11.0)
[2022-03-14 08:50] LABS: Anion Gap 3 (5-15); BUN 21 mg/dL (7-18); Calcium,Total 8.7 mg/dL (8.5-10.1); Chloride 109 mmol/L (98-107); Creatinine, Serum 0.64 mg/dL (0.55-1.02); EST Glomerular Filtration Rate 95 mL/min (>60); Est Glom Filt Rate - Afr Amer 114 mL/min (>60); Glucose 88 mg/dL (74-106); Magnesium 2.4 mg/dL (1.6-2.6); Potassium 3.7 mmol/L (3.5-5.1); Sodium Level 139 mmol/L (136-145)
== END ==
LOC: OLS.WHLTSB 05:00
PROVIDERS: PCP Family Medicine; Visit Provider Family Medicine
DX: D50.9 Iron deficiency anemia, unspecified (principal); S72.042D Displaced fracture of base of neck of left femur, subsequent encounter for closed fracture with routine healing; I48.21 Permanent atrial fibrillation; Z47.89 Encounter for other orthopedic aftercare; Z74.1 Need for assistance with personal care
CPT/HCPCS: 36415; 80048; 83735; 85025